=== PATIENT | female | born 1950 | race Two or more races ===

== ENCOUNTER 2025-07-28 12:44 | Emergency (ER) | payer MEDICARE ==
[~2025-07-28] VITALS: Ht 160 cm; Wt 68.0 kg
[2025-07-28] MEDS ORDERED: ONDANSETRON HCL/PF 4 MG/2 ML VIAL ONE (13:04)
[2025-07-28] MEDS: IV NS 0.9% 500 ML BAG IV ONE (13:08)
[2025-07-28] MEDS: ONDANSETRON HCL/PF 4 MG/2 ML VIAL IVP ONE (13:12)
[2025-07-28 13:16] LABS: PLATELET COUNT (AUTO) 345 K/uL (150-450); RED BLOOD CELL COUNT(AUTO) 5.45 MIL/uL (4.0-5.2); RED CELL DISTRIBUTION WIDTH 14.0 % (11.5-15.0); WHITE BLOOD COUNT (AUTO) 12.6 K/uL (4.3-11.0)
[2025-07-28 13:28] LABS: CALCIUM, SERUM 9.4 mg/dL (8.5-10.1); CREATININE 0.8 mg/dL (0.6-1.3); SODIUM SERUM 135 mmol/L (136-145); UREA NITROGEN, BLOOD 10 mg/dL (7-18)
[2025-07-28 13:34] LABS: ASPARTATE AMINOTRANSFERASE 23 U/L (15-37); TOTAL PROTEIN, SERUM 7.9 g/dL (6.4-8.2)
[2025-07-28 18:14] VITALS: TEMP 98.7; O2SAT 99
[2025-07-28 19:26] VITALS: BP 220/84
== END 2025-07-28 19:36 | disposition home or self-care (01) ==
LOC: ER 12:46
DX: R11.0 Nausea (principal); R10.84 Generalized abdominal pain; I10 Essential (primary) hypertension; F41.9 Anxiety disorder, unspecified
CPT/HCPCS: 99285; 74176; 96374; 71045; 93005; 85025; 80048; 83690; 80076; 36415; 84484 ×2; J2405; J7040